=== PATIENT | male | born 1955 | race Caucasian/White ===

== ENCOUNTER 2018-04-05 16:33 | Outpatient (CLI) | payer BC, SELFPAY ==
[2018-04-05 17:06] LABS: HCT 39.7 % (40.0-50.0); HGB 13.5 g/dL (13.5-17.5); Mean Corpuscular Volume 91.1 fL (80-95); Mean Platelet Volume 11.1 fL (8.0-11.0); Platelet Count 162 x1000/uL (130-400); RBC 4.36 m/cumm (4.50-6.00); RBC Distribution Width 12.9 % (11.8-14.1); White Blood Cell Count 6.84 k/cumm (4.4-10.8)
[2018-04-05 18:33] LABS: Anion Gap 9.6 mmol/L (3-11); BUN 24 mg/dL (7-18); CO2 27.4 mmol/L (21.0-32.0); CREATININE 0.88 mg/dL (0.70-1.30); Calcium 8.8 mg/dL (8.5-10.1); Chloride 105 mmol/L (98-107); Glucose 94 mg/dL (70-100); Potassium 4.3 mmol/L (3.5-5.1); Sodium 142 mmol/L (136-145)
== END 2018-04-05 16:53 ==
PROVIDERS: PCP Nurse Practitioner; Visit Provider Neurological Surgery
DX: M54.16 Radiculopathy, lumbar region (principal); Z01.818 Encounter for other preprocedural examination
CPT/HCPCS: 36415; 80048; 85027

== ENCOUNTER 2018-12-12 15:39 | Outpatient (CLI) | payer BC, SELFPAY ==
--- NOTE | 2018-12-12 14:30 | DI.CT_ITS ---
EXAM: CT HEAD WO CLINICAL HISTORY: worsening headache, left facial numbness, R51, W19.XXXA, R20.0. TECHNIQUE: NONCONTRAST CRANIAL CT WAS PERFORMED. COMPARISON: HEAD WITHOUT CONTRAST from 10/20/2015 FINDINGS: NOTE IS MADE OF MUCOPERIOSTEAL THICKENING OF MAXILLARY, ETHMOID, RIGHT SPHENOID AND RIGHT FRONTAL SIN USES CONSISTENT WITH CHRONIC SINUSITIS. MASTOID AIR CELLS ARE CLEAR. THE ORBITAL AND TEMPORAL BONE STRUCTURES APPEAR INTACT. NO CALVARIAL FRACTURE IDENTIFIED. THERE IS NO EVIDENCE OF ACUTE INTRACRAN IAL HEMORRHAGE, MASS EFFECT OR MIDLINE SHIFT. VENTRICULAR SYSTEM IS NORMAL IN APPEARANCE. IMPRESSION: FINDINGS CONSISTENT WITH CHRONIC PANSINUSITIS. NO EVIDENCE OF ACUTE INTRACRANIAL PROCESS
== END 2018-12-12 15:59 ==
PROVIDERS: PCP Nurse Practitioner; Visit Provider Nurse Practitioner
DX: R20.0 Anesthesia of skin (principal); R51 Headache; W19.XXXA Unspecified fall, initial encounter; J32.9 Chronic sinusitis, unspecified
CPT/HCPCS: 70450

== ENCOUNTER 2019-04-23 10:22 | Outpatient (CLI) | payer BC, SELFPAY ==
[2019-04-23 12:02] LABS: ALT 22 U/L (16-63); AST 19 U/L (15-37); Albumin 3.8 g/dL (3.4-5.0); Alkaline Phosphatase 103 U/L (46-116); Anion Gap 6.5 mmol/L (3-11); BUN 18 mg/dL (7-18); Bilirubin, Total 0.5 mg/dL (0.2-1.0); CO2 28.5 mmol/L (21.0-32.0); Calcium 8.8 mg/dL (8.5-10.1); Calculated LDL 118 mg/dL (<100); Chloride 106 mmol/L (98-107); Cholesterol 178 mg/dL (<200); Glucose 115 mg/dL (74-106); HDL Cholesterol 40 mg/dL (40-60); Potassium 4.1 mmol/L (3.5-5.1); Sodium 141 mmol/L (136-145); Total Protein 6.7 g/dL (6.4-8.2); Triglyceride 102 mg/dL (<150)
== END 2019-04-23 10:42 ==
PROVIDERS: PCP Nurse Practitioner; Visit Provider Nurse Practitioner
DX: E78.5 Hyperlipidemia, unspecified (principal)
CPT/HCPCS: 36415; 80053; 80061

== ENCOUNTER 2019-04-25 07:28 | Outpatient (CLI) | payer BC, SELFPAY ==
--- NOTE | 2019-04-25 10:09 | DI.RAD_ITS ---
EXAM: XR CERVICAL SPINE COMP 4-5V CLINICAL HISTORY: SPONDYLOSIS W/O MYELOPATHY OR RADICULOPATHY, CERVICAL REGION M47.812 COMPARISON: CERV SP.WITH OBL OR FLEX/EXT from 05/15/2008 FINDINGS: Six views were obtained. There is cervical vertebral body fusion from C4 through C7 with anterior fi xation at C4-5. There are wire loop fixatorus involving the posterior spinous process at C4-5 and C7 -T1. There are moderate hypertrophic changes involving the facet joints and the unfused vertebral en dplates. Neural foramina appear well maintained as visualized. No fracture or dislocation. IMPRESSION: Post surgical changes, and degenerative changes, no acute process.
== END 2019-04-25 07:48 ==
PROVIDERS: PCP Nurse Practitioner; Visit Provider Nurse Anesthetist, Certified Registered
DX: M47.812 Spondylosis without myelopathy or radiculopathy, cervical region (principal); Z98.1 Arthrodesis status
CPT/HCPCS: 72050

== ENCOUNTER → 2019-04-29 12:54 | Outpatient (BNVA) | payer BC, SELFPAY | PROVIDERS: PCP Nurse Practitioner; Referring Provider Nurse Practitioner; Visit Provider Nurse Practitioner Adult Health | DX: G31.84 Mild cognitive impairment of uncertain or unknown etiology (principal) | CPT/HCPCS: 99204; 99215 ==

== ENCOUNTER 2019-05-07 01:17 | Outpatient (CLI) | payer BC, SELFPAY ==
--- NOTE | 2019-05-07 08:15 | DI.CT_ITS ---
EXAM: CT CERVICAL SPINE WO CLINICAL HISTORY: RADICULOPATHY, CERVICAL, M54.12 TECHNIQUE: Noncontrast COMPARISON: CERVICAL SPINE WITHOUT CONTRA from 04/20/2017 XR CERVICAL SPINE COMP 4-5V from 04/25/2019 FINDINGS: There has been previous fusion from C 4 through C7. An anterior fixation plate is seen at C4-5. Th ere has also been fusion at the spinous processes with wires at the C4-5 and C7-T1 levels. There is some narrowing of the central canal at the level of the fusion. There is mild neural foraminal narro wing bilaterally at C7. There is mild narrowing of the C2-3 and C3-4 disc spaces with small endplate osteophytes. There is neural foraminal narrowing on the left at C3-4. There is no prevertebral soft tissue swelling. Airway is unremarkable. IMPRESSION: Neural foraminal narrowing bilaterally at C7 and on the left at C3-4.
[2019-05-07 09:37] LABS: Vitamin B12 736 pg/mL (193-986)
== END 2019-05-07 01:37 ==
PROVIDERS: PCP Nurse Practitioner; Visit Provider Nurse Practitioner
DX: M54.12 Radiculopathy, cervical region (principal); Z98.1 Arthrodesis status; M50.31 Other cervical disc degeneration, high cervical region
CPT/HCPCS: 36415; 72125; 82607; 84443

== ENCOUNTER 2019-10-10 11:31 | Outpatient (CLI) | payer BC, SELFPAY ==
[2019-10-12 14:39] LABS: COVID-19 RT-PCR Result NEGATIVE (Negative)
== END 2019-10-10 11:51 ==
PROVIDERS: PCP Nurse Practitioner; Visit Provider Nurse Anesthetist, Certified Registered
DX: Z11.59 Encounter for screening for other viral diseases (principal)
CPT/HCPCS: U0003

== ENCOUNTER 2019-11-10 11:37 | Outpatient (CLI) | payer SELFPAY ==
[2019-11-12 22:00] LABS: SARS-CoV-2 RNA Undetected (Undetected); SARS-CoV-2 Specimen Source Nasopharynx
== END 2019-11-10 11:57 ==
PROVIDERS: PCP Nurse Practitioner; Visit Provider Nurse Anesthetist, Certified Registered
DX: Z11.59 Encounter for screening for other viral diseases (principal); Z01.818 Encounter for other preprocedural examination
CPT/HCPCS: U0003

== ENCOUNTER 2019-12-02 12:04 | Emergency (ER) | payer OTHER, SELFPAY ==
[2019-12-02 12:13] VITALS: BP 158/93; PULSE 60; TEMP 36.4; O2SAT 98
--- NOTE | 2019-12-02 12:15 | DI.CT_ITS ---
EXAM: CT ABDOMEN PELVIS W CLINICAL HISTORY: left lower abdominal pain, n/v diarrhea. TECHNIQUE: Imaging Protocol: Axial computed tomography images with coronal and sagittal reformatted images were created and reviewed CONTRAST MATERIAL: Intravenous: Omnipaque 350 Contrast volume:100 cc Oral: no COMPARISON: No exams were available for comparison FINDINGS: ABDOMEN: Lung Bases: Normal where visualized. Liver: Moderate fatty infiltration. Small cyst inferiorly. Gallbladder and biliary tract: No radiodense calculus or dilation. Pancreas: Normal density, no abnormal calcifications or inflammatory process. Spleen: Normal. Kidneys: Normal size, contour and axis. No radiodense stones or obstructive uropathy. No masses seen. Adrenal glands: No masses seen. Abdominal Aorta: Abdominal portion non-dilated. Mild atherosclerotic changes. Spinal stimulator with leads in the lower thoracic spinal canal. PELVIS: Bladder: Symmetric distention, no gross wall thickening. Bowel: No obstruction or bowel wall thickening. Normal appendix. Small quantity of stool. Peritoneal cavity: No ascites, collection or mesenteric inflammatory response. Bones: Within normal limits. Reproductive organs: TURP defect in prostate Lymph nodes: Unremarkable. Impression: Unremarkable CT scan of the abdomen and pelvis. RADIATION DOSE DELIVERED: Total DLP DATA REPOSITORY: All CT scans at this facility are submitted to the National Radiology Data Registry (NRDR) Dose Index Registry (DIR) with the [employer] (ACR). RADIATION OPTIMIZATION: All CT scans at this facility use at least one of these dose optimization te chniques: automated exposure control; mA and/or kV adjustment per patient size (includes targeted exa ms where dose is matched to clinical indication); or iterative reconstruction.
--- NOTE | 2019-12-02 12:25 | W.ED.GENAD ---
Discharge Plan Disposition Patient Disposition: HOME Condition: Stable Discharge Details Chief Complaint: DrugWithdr/MAT Clinical Impression: Nausea & vomiting, Diarrhea, Abdominal pain Primary Care Provider: Tia Schmidt ED Provider: Elton Adrian Home Meds and New Rx's Prescriptions: New ondansetron 4 mg tablet,disintegrating 4 mg PO Q8H PRN (Reason: nausea and vomiting) Qty: 30 RF: 0 Continued diazepam 2 mg tablet 2 mg PO BID PRNRF: 0 Symproic 0.2 mg tablet 0.2 mg PO DAILY RF: 0 Hysingla ER 60 mg tablet,oral only,ext.rel.24 hr 60 mg PO QHS RF: 0 promethazine 12.5 MG tablet 1 - 2 tab PO Q8H PRN RF: 0 polyethylene glycol 3350 [Miralax] 17 GM powder in packet 17 g PO BID PRNQty: 2 RF: 11 duloxetine [Cymbalta] 20 MG capsule,delayed release(DR/EC) 20 mg PO DAILY RF: 0 ascorbic acid (vitamin C) [Vitamin C] 1,000 MG tablet 1,000 mg PO DAILY RF: 0 cholecalciferol (vitamin D3) 2,000 UNIT tablet 1,000 unit PO DAILY RF: 0 cyanocobalamin (vitamin B-12) 5,000 MCG tablet,disintegrating 5,000 mcg PO DAILY RF: 0 hydrocodone-acetaminophen 1 EACH tablet 1.5 ea PO Q4H PRN RF: 0 omeprazole 20 mg capsule,delayed release(DR/EC) 20 mg PO DAILY Qty: 90 RF: 3 aspirin [Aspir-81] 81 MG tablet,delayed release (DR/EC) 81 mg PO DAILY RF: 0 triamcinolone acetonide [Nasacort] 10.8 ML aerosol,spray 1 spray NS PRN PRNRF: 0 Discharge Instructions Instructions: Acute Nausea and Vomiting (ED), Acute Diarrhea (ED) Additional Instructions: your blood work and cat scan did not show any concerning findings follow up with your primary care provider this week for a recheck if you feel more ill, have severe worsening pain or persistent vomit return to the emergency department Medical Decision Making 64 yo male on chronic opiates for neck and back pain and last had his chronic medication changed to oxycodone and he stopped taking this Sunday due to feeling as though they weren't effective and has been having n/v and diarrhea since and feels weak. On my exam denies chest pressure, dyspnea, fevers. Arrives hd stable speaking in full sentences, no focal deficits, no headaches, does have tenderness in llq. I suspect opiate withdrawal but given his pain on exam feel imaging to evaluate for diverticulitis indicated. Will also evaluate for electrolyte abnormalities given his n/v/d. labs and imaging unremarkable, has very mild tenderness to deep palpation to llq. Tolerating po, stillno chest pain or dyspnea here with stable vitals. Could be opiate withdrawal vs gastroenteritis. Advised f/u with pcp this week and return precautions given Differential Diagnosis Differential Diagnosis: diverticulitis, drug withdrawal, medication reaction Imaging Data Radiologic Study: Attestation: I personally reviewed and interpreted this imaging study as follows: Imaging: CT Scan Radiologist's impression: no acute findings Lab Data Lab results reviewed: Yes I reviewed the patient's lab results. HPI General Mode of arrival: wheelchair. Date/Time Provider Initiated Documentation: 12/02/19 12:05. Limitations to Documentation: no limitations. Information obtained by: patient. History of Present Illness 64 year old M presents to the emergency department with the chief complaint of nausea and vomit, and it has been intermittent. No relieving factors improve symptom(s), No exacerbating factors reported . Patient did receive the following treatments prior to arrival, none Related Data Home Medications Medication Instructions Recorded Confirmed aspirin [Aspir-81] 81 mg PO DAILY 08/08/13 04/29/19 promethazine 1 - 2 tab PO Q8H PRN tab-cap 04/21/14 04/29/19 polyethylene glycol 3350 [Miralax] 17 g PO BID PRN #2 bottle 01/14/15 04/29/19 duloxetine [Cymbalta] 20 mg PO DAILY 01/07/16 04/29/19 ascorbic acid (vitamin C) [Vitamin 1,000 mg PO DAILY 01/11/16 04/29/19 C] cholecalciferol (vitamin D3) 1,000 unit PO DAILY 01/11/16 04/29/19 cyanocobalamin (vitamin B-12) 5,000 mcg PO DAILY 01/11/16 04/29/19 hydrocodone-acetaminophen 1.5 ea PO Q4H PRN 03/24/16 04/29/19 triamcinolone acetonide [Nasacort] 1 spray NS PRN PRN 07/24/16 04/29/19 diazepam 2 mg tablet 2 mg PO BID PRN 04/05/18 04/29/19 naldemedine 0.2 mg tablet 0.2 mg PO DAILY 12/12/18 04/29/19 omeprazole 20 mg capsule,delayed 20 mg PO DAILY #90 tab-cap 03/05/19 04/29/19 release hydrocodone bitartrate 60 mg 60 mg PO QHS 04/09/19 04/29/19 tablet,crush resist,extended rel. 24hr ondansetron 4 mg PO Q8H PRN #30 tab 12/02/19 Previous Rx's Medication Instructions Recorded omeprazole 20 mg capsule,delayed 20 mg PO DAILY #90 tab-cap 03/05/19 release ondansetron 4 mg PO Q8H PRN #30 tab 12/02/19 Allergies Allergy/AdvReac Type Severity Reaction Status Date / Time adhesive tape Allergy Intermediate makes my Verified 04/29/19 13:06 skin boil nortriptyline Allergy Unknown Verified 04/29/19 13:06 clarithromycin AdvReac Severe ?heart Verified 04/29/19 13:06 problem ketamine AdvReac Severe Psychosis Verified 04/29/19 13:06 atorvastatin calcium AdvReac Intermediate liver Verified 04/29/19 13:06 [From Lipitor] problems gabapentin AdvReac Intermediate Nausea, Verified 04/29/19 13:06 irritable orphenadrine AdvReac Intermediate urinary Verified 04/29/19 13:06 hesitancy worse Penicillins AdvReac Intermediate nausea/vomi Verified 04/29/19 13:06 ting diazepam AdvReac on higher Verified 04/29/19 13:06 dose - memory loss General Stated Complaint: DrugWithdr/MAT RIOS: 3 Review of Systems All systems reviewed & are unremarkable except as noted in HPI and below Constitutional Constitutional: Denies chills, Denies fever(s) and Denies weakness Cardiovascular Cardiovascular: Denies chest pain and Denies dyspnea Respiratory Respiratory: Denies cough and Denies dyspnea Musculoskeletal Musculoskeletal: Denies joint swelling Neurologic Neurologic: Denies weakness Psychiatric Psychiatric: Denies depression [facility] Medical History (Updated 12/02/19 @ 14:27 by Elton Adrian MD) Abnormal ECG (Chronic) low voltage, R axis Anxiety disorder (Chronic 11/19/14) anxiety attacks 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 Prajapati Chronic pain Depressive disorder, not elsewhere classified (Chronic 11/07/12) GERD (gastroesophageal reflux disease) Hyperlipidemia, unspecified (Chronic 11/07/12) PCEq 9%; LDL baseline 155 Low testosterone in male (Chronic 12/07/16) Lumbar radiculopathy (Chronic 02/26/14) [facility]: [facility]: epidural steroid 02/25/14 multiple diagnosis from paincare [facility] from office visit 08/23/16. placed in scanning. Memory loss (Suspected 11/07/12) Mild cognitive impairment (Acute) WILVER (obstructive sleep apnea) Other chronic pain (Chronic 10/15/04) ONSET FALL 09/2004; S/P multiple surgeries,h/o trauma, Foot pain rt ?nerve damage from spine,R>L; Chronic opiod Rx Spinal cord stimulator: Neurosuragery APD Peripheral neuropathy (Chronic 07/11/17) mild sensory peripheral neuropathy by EMG Sleep apnea, central (Chronic 12/07/16) Tubulovillous adenoma of colon (Chronic 07/26/16) again on 08/07/19 Surgical History (Updated 08/22/19 @ 10:09 by Susy Lemus RN) bladder barbotage/bladder bx (09/08/15) Dr Pruitt 09/08/15 Cystourothroscopy w/bladder barbotage-mild meatal stenosis, mild posterior urethritis, bilobat BPH w/ visual cutlet obstruction. Negative bladder. colonoscopy (07/26/16) again 08/07/19 cystourethroscopy with dilation (04/25/17) Dr Pruitt egd (07/26/16) Transurethral prostatectomy (02/23/16) Dr. Pruitt Family History Mother , 54 Personal history of malignant neoplasm lung Heart disease Diabetes Maternal Grandmother Personal history of malignant neoplasm Breast Diabetes Social History (Updated 04/29/19 @ 13:08 by Maite Rutledge LPN) Smoking/Tobacco Use Status: Former Tobacco Use Quit Date: 03/26/98 Alcohol Intake: never Drug use: Daily Substance use type: marijuana Adopted: No Foster care: Yes Housing: house Number of Children: 2 What is your relationship status?: Panel score (0-1 are the most socially isolated patients): 0 What type of physical activity do you participate in: none Special antionette needs: No Agree to transfusion: Yes Seatbelt use: always Drive intox or ride w/intox commercial driver's license driver: No Working smoke detector in home: Yes Fire extinguisher in home: Yes Carbon monox detector in home: Yes Do you feel safe at home: Yes Do you feel safe in your relationship?: Yes Exam Const General: no acute distress Orientation: alert HENMT Head: normal to inspection Ears: external ears normal General nose exam: external nose normal Mouth: moist mucous membranes Eyes General: appearance normal, both eyes and all related structures Neck Neck: normal visual inspection Resp Effort & Inspection: normal respiratory effort and able to speak in complete sentences Cardio Rate: regular rate GI Palpation: soft Skin General skin exam: no rashes or lesions noted Neuro General: patient alert and patient oriented x3 Extrem General: normal to inspection Psych Mental Status: mental status grossly normal Course Vital Signs Vital signs: Vital Signs Temperature 36.4 C L 12/02/19 12:13 Pulse 60 12/02/19 12:13 Blood Pressure 158/93 H 12/02/19 12:13 Pulse Oximetry 98 12/02/19 12:13 Temperature 36.4 C L 12/02/19 12:13 Temperature Source Temporal Artery Scan 12/02/19 12:13 Pulse 60 12/02/19 12:13 Blood Pressure 158/93 H 12/02/19 12:13 Blood Pressure Position Sitting 12/02/19 12:13 Pulse Oximetry 98 12/02/19 12:13 Oxygen Delivery Method Room Air 12/02/19 12:13 Oxygen Flow Rate 0 12/02/19 12:13 Pain Level 8 12/02/19 12:13
[2019-12-02 12:48] LABS: Abs Immature Grans 0.01 10^3/uL (0.0-0.06); Absolute Basophil Count 0.04 10^3/uL (0.0-0.2); Absolute Eosinophil Count 0.14 10^3/uL (0.0-0.7); Absolute Lymphocyte Count 2.52 10^3/uL (1.2-3.4); Absolute Monocyte Count 0.43 10^3/uL (0.1-0.8); Absolute Neutrophil Count 3.89 10^3/uL (1.2-6.7); Basophils % 0.6; HCT 44.5 % (40.0-50.0); HGB 15.2 g/dL (13.5-17.5); Immature Grans % 0.1; Lymphocytes % 35.8; MCHC 34.2 % (32.0-36.0); MCV 87.9 fL (80-95); MPV 10.6 fL (8.0-11.0); Monocytes % 6.1; Neutrophils % 55.4; Nucleated RBC 0 %; Platelet Count 206 10^3/uL (130-400); RBC 5.06 10^6/uL (4.36-5.78); RDW 12.2 % (11.8-14.1); WBC 7.03 10^3/uL (4.4-10.8)
[2019-12-02] MEDS: Ondansetron 4 MG/2 ML VIAL IVP (12:50)
[2019-12-02] MEDS: Normal Saline 1,000 ML 1000 ML IV (12:51)
[2019-12-02 13:03] LABS: PTT Activated 25.5 sec (21.0-31.4); Prothrombin Time 10.5 sec (9.3-11.0)
[2019-12-02 13:10] LABS: ALT 29 U/L (16-63); AST 20 U/L (15-37); Albumin 3.8 g/dL (3.4-5.0); Alkaline Phosphatase 90 U/L (46-116); Anion Gap 8.2 mmol/L (3-11); BUN 24 mg/dL (7-18); Bilirubin, Direct 0.15 mg/dL (0.00-0.20); Bilirubin, Total 0.8 mg/dL (0.2-1.0); CO2 25.8 mmol/L (21.0-32.0); CREATININE 0.84 mg/dL (0.70-1.30); Calcium 9.6 mg/dL (8.5-10.1); Chloride 104 mmol/L (98-107); Glucose 131 mg/dL (74-106); Lipase 78 U/L (73-393); Magnesium 1.8 mg/dL (1.8-2.4); Potassium 3.7 mmol/L (3.5-5.1); Sodium 138 mmol/L (136-145); Total Protein 7.1 g/dL (6.4-8.2)
[2019-12-02] MEDS: Omnipaque 350 MG/ML 100 ML BTL IJ (13:41)
[2019-12-02] MEDS: Normal Saline - Diluent 50 ML VIAL IV (13:41)
[2019-12-02 14:31] VITALS: BP 138/83; PULSE 65; RESP 18; O2SAT 99
== END 2019-12-02 14:38 | disposition home or self-care (01) ==
PROVIDERS: Emergency Provider Emergency Medicine; PCP Nurse Practitioner
DX: R11.2 Nausea with vomiting, unspecified (principal); R19.7 Diarrhea, unspecified; R10.32 Left lower quadrant pain
CPT/HCPCS: 80053; 83690; 96361; 96374; 99285; 74177; 82248; 83735; 85025; 85610; 85730; 99284; J2405; J3490

== ENCOUNTER 2020-03-09 10:13 | Outpatient (CLI) | payer OTHER, SELFPAY ==
--- NOTE | 2020-03-09 13:41 | DI.RAD_ITS ---
EXAM: XR WRIST LT COMPLETE CLINICAL HISTORY: [id number],wrist pain. History of surgery wrist,m25.029. TECHNIQUE: 2D digital imaging was performed. COMPARISON: No exams were available for comparison FINDINGS: BONES: No acute fracture is present. Sideplate and screws are seen in the distal left radius. There is an old fracture deformity involving the distal radius. There is a well corticated osseous fragme nt at the tip of the ulnar styloid process consistent with a old avulsed fracture fragment. No bony destructive lesion is seen. JOINTS: The carpal bones are normally aligned. SOFT TISSUE: Normal. IMPRESSION: No acute abnormality. Old left radial and ulnar fractures. DATA REPOSITORY: RADIATION DOSE DELIVERED:
== END 2020-03-09 10:33 ==
PROVIDERS: PCP Nurse Practitioner; Visit Provider Nurse Practitioner
DX: M25.532 Pain in left wrist (principal); Z87.81 Personal history of (healed) traumatic fracture
CPT/HCPCS: 73110

== ENCOUNTER 2020-04-22 02:40 | Outpatient (CLI) | payer OTHER, SELFPAY ==
[2020-04-23 13:38] LABS: COVID-19 RT-PCR UVMMC Result Negative (Negative)
== END 2020-04-22 03:00 ==
PROVIDERS: PCP Nurse Practitioner; Visit Provider Nurse Practitioner
DX: Z11.52 Encounter for screening for COVID-19 (principal); Z01.818 Encounter for other preprocedural examination
CPT/HCPCS: U0003

== ENCOUNTER 2021-01-13 16:16 | Outpatient (REF) | payer SELFPAY ==
[2021-01-15 11:00] LABS: COVID-19 RT-PCR UVMMC Result Negative (Negative)
== END 2021-01-13 16:17 | disposition home or self-care (01) ==
LOC: LBN 16:16
PROVIDERS: PCP Nurse Practitioner; Visit Provider Nurse Practitioner Family
DX: Z20.822 Contact with and (suspected) exposure to COVID-19 (principal)
CPT/HCPCS: U0003

== ENCOUNTER 2021-01-18 15:16 | Outpatient (CLI) | payer SELFPAY ==
[2021-01-18 12:12] LABS: ALT 39 U/L (16-63); AST 27 U/L (15-37); Alkaline Phosphatase 95 U/L (46-116); Anion Gap 9.9 mmol/L (3-11); BUN 23 mg/dL (7-18); Bilirubin, Total 0.6 mg/dL (0.2-1.0); CO2 26.1 mmol/L (21.0-32.0); CREATININE 0.9 mg/dL (0.70-1.30); Calcium 8.9 mg/dL (8.5-10.1); Calculated LDL 111 mg/dL (<100); Chloride 105 mmol/L (98-107); Cholesterol 176 mg/dL (<200); Glucose 104 mg/dL (74-106); HDL Cholesterol 43 mg/dL (40-60); Potassium 4.1 mmol/L (3.5-5.1); Sodium 141 mmol/L (136-145); Total Protein 7.1 g/dL (6.4-8.2); Triglyceride 113 mg/dL (<150)
== END 2021-01-18 15:17 | disposition home or self-care (01) ==
LOC: LBO 15:24
PROVIDERS: PCP Nurse Practitioner; Visit Provider Nurse Practitioner
DX: E78.5 Hyperlipidemia, unspecified (principal); F32.9 Major depressive disorder, single episode, unspecified
CPT/HCPCS: 36415; 80053; 80061

== ENCOUNTER 2021-02-02 17:56 | Outpatient (CLI) | payer OTHER, SELFPAY ==
--- NOTE | 2021-02-02 14:00 | DI.RAD_ITS ---
Exam(s) XR CHEST 2V PA LATERAL EXAM: XR CHEST 2V PA LATERAL CLINICAL HISTORY: cough,sob, r06.02,r05.9. TECHNIQUE: 2D digital imaging was performed. COMPARISON: CR CHEST 2 VIEWS PA,LAT from 06/05/2016 FINDINGS: Thoracic epidural leads are again noted as is evidence of previous surgery cervical spine Heart size is normal. The mediastinum is not widened. Lungs are clear. No infiltrates nor pleural effusions. IMPRESSION: No acute pulmonary findings.No significant change compared to May 2016 DATA REPOSITORY: RADIATION DOSE DELIVERED:
== END 2021-02-02 18:16 ==
PROVIDERS: PCP Nurse Practitioner; Visit Provider Nurse Practitioner
DX: R06.02 Shortness of breath (principal); R05.8 Other specified cough
CPT/HCPCS: 71046